=== PATIENT | female | born 1990 | race Asian ===

== ENCOUNTER 2016-11-27 06:12 | Observation (INO) | payer OTHER ==
[2016-11-26 10:00] VITALS: BMI 30.1
[2016-11-27] VITALS (31 sets, daily range): BP systolic 81–116; BP diastolic 47–67; PULSE 60–94; RESP 17–19; Ht 144.8 cm; Wt 61.3 kg
[~2016-11-27] VITALS: Ht 144.8 cm; Wt 61.3 kg
[2016-11-27] MEDS ORDERED: LACTATED RINGER'S 1,000 ML IV* SCH (06:30)
[2016-11-27] MEDS ORDERED: CEFAZOLIN 2 GM/50 ML (PMX) 50 ML IVPB ONE (06:36)
[2016-11-27] MEDS ORDERED: FENTAnyl 50 MCG/ML VIAL ONE (07:52)
[2016-11-27] MEDS ORDERED: PROPOFOL 100 ML ONE (07:56)
[2016-11-27] MEDS ORDERED: ROCURONIUM 50 MG INJ ONE (07:58)
[2016-11-27] MEDS ORDERED: LIDOCAINE 2% (SDV) 5 ML INJ ONE (07:58)
[2016-11-27] MEDS ORDERED: MIDAZOLAM 1 MG/ML 2 ML INJ ONE (08:01)
[2016-11-27] MEDS ORDERED: CEFAZOLIN 1 GM INJ ONE (08:14)
[2016-11-27] MEDS ORDERED: DEXAMETHASONE 4 MG/ML 1 ML INJ ONE (08:37)
[2016-11-27] MEDS ORDERED: ONDANSETRON 4 MG INJ ONE (08:38)
[2016-11-27] MEDS ORDERED: FENTAnyl 50 MCG/ML VIAL IV PRN ×3 (09:00)
[2016-11-27] MEDS ORDERED: ONDANSETRON 4 MG INJ IV PRN ×2 (09:00→10:00)
[2016-11-27] MEDS ORDERED: HYDROmorphONE (0.2 MG/ML) 10ML SYG IV PRN ×3 (09:00)
[2016-11-27] MEDS ORDERED: LABETALOL HCL 20MG INJ IV PRN (09:00)
[2016-11-27] MEDS ORDERED: MEPERIDINE 25 MG INJ IV PRN (09:00)
[2016-11-27] MEDS ORDERED: NEOSTIGMINE 3 MG/3 ML SYRINGE ONE (09:26)
[2016-11-27] MEDS ORDERED: GLYCOPYRROLATE 0.4 MG INJ ONE (09:26)
--- NOTE | 2016-11-27 09:45 | HP ---
Date/Time of Note Date/Time of Note DATE: 11/27/16 TIME: 09:32 Assessment/Plan VTE Prophylaxis VTE Prophylaxis Intervention: ambulation Lines/Catheters IV Catheter Type (from [facility]): Peripheral IV Urinary Cath still in place: No Assessment/Plan Assessment/Plan rt ovarian cyst pelvic pain plan exploratory laparotomy rt ovarian cystectomy HPI/ROS Admit Date/Time Admit Date/Time Nov 27, 2016 at 06:12 Hx of Present Illness 26 y.o A1 was admitted for exploratory laparotomy and rt ovarian cystectomy. In september 2015 ovarian cyst was discovered per u/s while she was which is lost at 9 weeks f/u u/s 8 mo later which is persistant even increase in size and shows characteristics of dermoid also she has been surffering form pelvic pain especially on rt pelvic area on and off Here for surgical intervention. ROS lower abdominl pain Constitutional: improved, no complaints Gastrointestinal: pain PMH/Family/Social Past Medical History Medical History: no pertinent history Past Surgical History Past Surgical Hx: no surgical history Social History Alcohol Use: sober Smoking Status: Never smoker Drug Use: none Exam/Review of Systems Vital Signs Vitals Vital Signs Date Time Temp Pulse Resp B/P Pulse Ox O2 Delivery O2 Flow Rate FiO2 11/27/16 07:44 97.8 70 19 97/57 97 Room Air Exam Constitutional: alert, oriented, well developed Psych: nl mood/affect, no complaints Head: atraumatic, normocephalic Eyes: EOMI, PERRL, nl conjunctiva, nl lids, nl sclera ENMT: nl external ears & nose, nl lips & teeth, nl nasal mucosa & septum Neck: non-tender, supple Respiratory: clear to auscultation, normal air movement Cardiovascular: nl pulses, regular rate and rhythm Gastrointestinal: nl liver, spleen, non-tender, soft Genitourinary - Female: other (rt ovarian cyst) Musculoskeletal: nl extremities to inspection Extremities: normal pulses Neurological: 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
[2016-11-27] MEDS ORDERED: IBUPROFEN 600 MG TAB PO PRN (10:00)
--- NOTE | 2016-11-27 10:42 | OPR ---
DATE OF OPERATION: 11/27/2016 PREOPERATIVE DIAGNOSIS: Right ovarian cyst and pelvic pain. POSTOPERATIVE DIAGNOSIS: Dermoid cyst. See pathological report. OPERATION PERFORMED: Exploratory laparotomy, right ovarian cystectomy, left wedge dissection of the ovary. ANESTHESIA: General. ANESTHESIOLOGIST: Dr. Mcallister SURGEON: Maciel Rosen MD PLAYER DEVELOPMENT EXECUTIVE: Florentin Walls MD ESTIMATED BLOOD LOSS: Negligible, less than 10 mL. PROCEDURE: Under appropriate induction of general anesthesia, the patient was placed in the frog po sition. Sneed catheter was introduced into the bladder under sterile conditions and repositioned to supine. The abdominal wall was prepped and draped in the usual aseptic manner. A small incision w as made in the suprapubic region, which was approximately 6 cm in length, and the incision was yesi ed down through the subcutaneous tissue to the anterior recti fissure, which was incised transversel y the length of the incision. A fascial flap was created by blunt and sharp dissection of the tendi nous attachment upwards and downwards. The rectus muscles were split in the midline and the periton eal cavity was entered. Pelvic exploration by palpation felt the right ovarian cyst and the left ov ivory was slightly enlarged, but no cystic lesion was seen. The right ovary was delivered out to the operative field, and an incision was made on the cortex and this incision was lifted with an Allis c lamp and the large, approximately 6 cm, cystic lesion was enucleated in the usual fashion, which was intact. This appeared to be a dermoid cyst, which I did not open, but it shows some fatty tissue w as visualized through the thin wall. Sent for permanent section and the defect was closed with a 2- 0 chromic catgut in horizontal mattress manner. This area was covered with Interceed for the preven tion of adhesions. No bleeder was noted. The right ovary was dropped in the pelvic cavity and the left ovary was visualized, which was brought out through the wound and the same procedure was done, but no cystic lesion was visualized and at this point because the size of the ovary was larger than normal size and due the bilaterality of the dermoid cyst, a wedge resection was decided, which was d one by cutting a portion of the ovary and sent to the pathologist for examination. This defect was closed with 2-0 chromic catgut in continuous manner. A piece of Interceed covered the surgical woun d. No bleeder was noted. The left ovary was inserted into the peritoneal cavity and the parietal p eritoneum was closed using 0 chromic catgut in continuous manner after the lab count, which was sage ect. The muscle was closed with 0 chromic catgut in continuous manner. Fascia was closed with #1 V icryl in continuous manner in 2 segments. The subcutaneous tissue was irrigated with water. This l pravin was approximated with a 2-0 plain in continuous manner. Skin was closed with a 3-0 Monocryl in a subcuticular manner. Steri-Strips were applied. Pressure dressing was applied. Estimated blood loss was less than 10 mL. Dictated By: MACIEL OVIEDO/FIDENCIO Conf#: [id number] DID#: [id number]
[2016-11-27] MEDS: morphine 2 MG INJ IV PRN ×3 (12:42→23:45)
[2016-11-27] MEDS: LACTATED RINGER'S 1,000 ML IV SCH ×2 (13:05→23:48)
[2016-11-27] MEDS: HYDROCODONE/APAP (5/325) TAB PO PRN ×2 (15:06→18:59)
[2016-11-28] MEDS: morphine 2 MG INJ IV PRN ×3 (03:34→08:06)
[2016-11-28 05:54] LABS: RED BLOOD COUNT 3.34 10^6/ul (4.20-5.40); WHITE BLOOD COUNT 11.5 10^3/ul (4.8-10.8)
[2016-11-28 05:55] LABS: BASOPHILS % 0.1 % (0.0-2.0); EOSINOPHILS % 0.1 % (0.0-7.0); HEMATOCRIT 31.5 % (37.0-47.0); LYMPHOCYTES # 2.2 10^3/ul (0.8-2.9); LYMPHOCYTES % 19.1 % (15.0-51.0); MEAN CORPUSCULAR HEMOGLOBIN 29.9 pg (29.0-33.0); MEAN CORPUSCULAR HGB CONC 31.7 g/dl (32.0-37.0); MEAN CORPUSCULAR VOLUME 94.3 fl (82.0-101.0); MEAN PLATELET VOLUME 10.4 fl (7.4-10.4); MONOCYTE # 0.9 10^3/ul (0.3-0.9); MONOCYTES % 7.8 % (0.0-11.0); NEUTROPHIL # 8.3 10^3/ul (1.6-7.5); NEUTROPHILS % 72.6 % (39.0-77.0); PLATELET COUNT 239 10^3/UL (140-440); RED CELL DISTRIBUTION WIDTH 12.9 % (11.5-14.5)
[2016-11-28 08:09] VITALS: BP 108/60; RESP 20
--- NOTE | 2016-11-28 12:15 | PD.PPDC ---
[address] Discharge Instruction Diagnosis Final Diagnosis: dermoid cyst rt ovary Condition Patient Condition: Stable Diet Diet: Resume Regular Diet Activity/Restrictions Activity: May Shower Restrictions: No Exercising No Lifting Minimize Stair-climbing No Sexual Activity Nothing in the Vagina No [place] No Tampons, douche Wound/Drain Care Instructions Wound/Drain Care Instructions: Wash with soap and water Keep clean and dry Follow-up Follow-up with Physician: 2, Week/Weeks Return to clinic for SHAREPOINT SPECIALIST Instructions: Fever greater than 101 Chills Worsening abdominal pain Excessive Vaginal Bleeding More than 2 pads per hour Unable to tolerate diet OB Instructions: Breast Tenderness Surgical Instructions: Incisional Drainage Incisional Redness AUSTIN LAST MD Nov 28, 2016 12:15
--- NOTE | 2016-11-28 12:19 | DS ---
Date/Time of Note Date/Time of Note DATE: 11/28/16 TIME: 12:16 Discharge Summary Admission/Discharge Info Admit Date/Time Nov 27, 2016 at 06:12 Discharge Date/Time nov 28 2016 Final Diagnosis dermoid cyst rt ovary Patient Condition: Stable Procedures exp lap rt ovarian cystectomy wedge resection of lt ovary Hx of Present Illness 26 y.o A1 was admitted for exploratory laparotomy and rt ovarian cystectomy. In september 2015 ovarian cyst was discovered per u/s while she was which is lost at 9 weeks f/u u/s 8 mo later which is persistant even increase in size and shows characteristics of dermoid also she has been surffering form pelvic pain especially on rt pelvic area on and off Here for surgical intervention. Hospital Course unevenful Home Meds No Active Prescriptions or Reported Meds Follow-up Plan 2weeks Pending Labs Laboratory Tests Test 11/28/16 04:25 Basophils # 0.010^3/ul (0.0-0.1) Basophils % 0.1% (0.0-2.0) Eosinophils # 0.010^3/ul (0.0-0.5) Eosinophils % 0.1% (0.0-7.0) Hematocrit 31.5% (37.0-47.0) Hemoglobin 10.0g/dl (12.0-16.0) Lymphocytes # 2.210^3/ul (0.8-2.9) Lymphocytes % 19.1% (15.0-51.0) Mean Corpuscular Hemoglobin 29.9pg (29.0-33.0) Mean Corpuscular Hemoglobin Concent 31.7g/dl (32.0-37.0) Mean Corpuscular Volume 94.3fl (82.0-101.0) Mean Platelet Volume 10.4fl (7.4-10.4) Monocytes # 0.910^3/ul (0.3-0.9) Monocytes % 7.8% (0.0-11.0) Neutrophils # 8.310^3/ul (1.6-7.5) Neutrophils % 72.6% (39.0-77.0) Nucleated Red Blood Cells # 0.010^3/ul (0.0-0.0) Nucleated Red Blood Cells % 0.0/100WBC (0.0-0.0) Platelet Count 02885^3/UL (140-440) Red Blood Count 3.3410^6/ul (4.20-5.40) Red Cell Distribution Width 12.9% (11.5-14.5) White Blood Count 11.510^3/ul (4.8-10.8) AUSTIN LAST MD Nov 28, 2016 12:19
[2016-11-28] MEDS: HYDROCODONE/APAP (5/325) TAB PO PRN (13:01)
== END 2016-11-28 14:29 | disposition home or self-care (01) ==
LOC: REC 06:12 → EDSEX 06:12 → INTOOBSV 06:12 → EDSTATUS 08:00 → MS1 11:35
PROVIDERS: ADMIT Obstetrics & Gynecology; ATTEND Obstetrics & Gynecology
DX: D27.1 Benign neoplasm of left ovary (principal)
CPT/HCPCS: 58925; 84703; 85025; 86850; 86900; 86901; 86920; 87086; 88305; 96365; 96374; 96375; 96376; J0690; J1100; J2250; J2270; J2405; J2710; J3010; J7120; Z7500; Z7512; Z7610; 99217; G0378